=== PATIENT | male | born 1990 | race Caucasian/White ===

== ENCOUNTER 2023-11-11 18:57 | Inpatient (IN) | payer OTHER ==
[2023-11-11] MEDS ORDERED: KETOROLAC TROMETHAMINE 15 MG/ML VIAL ONE ×2 (20:49→20:51)
[2023-11-11] MEDS ORDERED: ACETAMINOPHEN INJECTION 100 ML IVPB ONE (20:49)
[2023-11-11] MEDS: KETOROLAC TROMETHAMINE 15 MG/ML VIAL IVPUSH ONE (21:07)
[2023-11-11] MEDS: ACETAMINOPHEN 1000 MG/100 ML BAG IVPB ONE (21:07)
[2023-11-11 21:21] LABS: BASO % 0.6 % (0-2.0); EOS % 2.9 % (0-4.5); HEMATOCRIT 28.8 % (35.4-49); MCH 22.5 pg (25.7-33.7); MCHC 31.2 g/dl (32.0-35.9); MEAN PLT VOLUME 6.6 fl (7.5-11.1); MONO % 9.7 % (3.8-10.2); NEUT % 62.8 % (42.8-82.8); PLATELET COUNT 508 10^3/uL (134-434); RDW 19.9 % (11.9-15.9); WHITE BLOOD COUNT 7.9 K/mm3 (4.0-10.0)
[2023-11-11 21:47] LABS: CALCIUM 8.4 mg/dL (8.5-10.1)
[2023-11-11 21:48] LABS: ALBUMIN 2.9 g/dl (3.4-5.0); BLOOD UREA NITROGEN 25.6 mg/dL (7-18)
[2023-11-11 21:51] LABS: CREATININE 0.8 mg/dL (0.55-1.3)
[2023-11-11 21:52] LABS: BILIRUBIN,TOTAL 0.2 mg/dL (0.2-1); TOT PROT 7.1 g/dl (6.4-8.2)
[2023-11-11] MEDS ORDERED: VANCOMYCIN HCL 1,500 MG in DEXTROSE 5%-WATER - 500 ML IVPB ONE (23:32)
[2023-11-12] MEDS ORDERED: PIPERACILLIN/TAZOB 3.375 GM 3.375 GM/50 ML BAG IVPB ONE (00:31)
[2023-11-12] MEDS: PIPERACILLIN/TAZOB 3.375 GM 3.375 GM in DEXTROSE 5%-WATER - 50 ML IVPB ONE (00:56)
[2023-11-12] MEDS ORDERED: VANCOMYCIN 1,000 MG in DEXTROSE 5%-WATER - 250 ML IVPB SCH (03:30)
[2023-11-12] MEDS ORDERED: VANCOMYCIN HCL 1,500 MG in DEXTROSE 5%-WATER - 250 ML IVPB SCH (03:30)
[2023-11-12] MEDS: ACETAMINOPHEN 1000 MG/100 ML BAG IVPB PRN (03:38)
[2023-11-12] MEDS: KETOROLAC TROMETHAMINE 15 MG/ML VIAL IVPUSH PRN (03:38)
[2023-11-12] MEDS ORDERED: cloNIDine HCL 0.1 MG TABLET PO PRN (03:43)
[2023-11-12] MEDS ORDERED: methaDONE HCL 10 MG TABLET ONE (03:58)
[2023-11-12] MEDS: methaDONE HCL 10 MG TABLET (FOR DETOX USE ONLY) PO ONE (04:11)
[2023-11-12] MEDS: VANCOMYCIN PREMIX 1.5 GM 1,500 MG/300 ML BAG IVPB ONE (04:55)
[2023-11-12] MEDS: GABAPENTIN 300 MG CAPSULE PO SCH (06:38)
[2023-11-12 06:58] VITALS: BMI 28.0
[2023-11-12] MEDS ORDERED: PIPERACILLIN/TAZOBACTAM 3.375 GM VIAL IVPB ONE (09:30)
[2023-11-12] MEDS ORDERED: PIPERACILLIN/TAZOB 3.375 GM 3.375 GM in DEXTROSE 5%-WATER - 50 ML IVPB SCH (10:00)
[2023-11-12] MEDS ORDERED: POLYETHYLENE GLYCOL (HEALTHYLAX) 3350 17 GM PACKET PO PRN (10:16)
[2023-11-12] MEDS ORDERED: ONDANSETRON *ODT* 4 MG TABLET SL PRN (10:16)
[2023-11-12] MEDS ORDERED: hydrOXYzine PAMOATE 25 MG CAPSULE (FP) PO PRN (10:16)
[2023-11-12] MEDS ORDERED: LOPERAMIDE HCL 2 MG CAPSULE PO PRN (10:16)
[2023-11-12] MEDS ORDERED: NALOXONE HCL 0.4 MG/ML VIAL IM PRN (10:16)
[2023-11-12] MEDS ORDERED: MAG HYDROX/AL HYDROX/SIMETH 30 ML UNIT-DOSE CUP PO PRN (10:16)
[2023-11-12 10:35] LABS: BASO % 0.7 % (0-2.0); EOS % 2.1 % (0-4.5); HEMATOCRIT 32.5 % (35.4-49); HEMOGLOBIN 9.7 GM/dL (11.7-16.9); LYMPH % 18.1 % (8-40); MCH 21.8 pg (25.7-33.7); MCHC 29.8 g/dl (32.0-35.9); MEAN CELL VOLUME 73.1 fl (80-96); MEAN PLT VOLUME 6.3 fl (7.5-11.1); MONO % 9.5 % (3.8-10.2); NEUT % 69.6 % (42.8-82.8); PLATELET COUNT 540 10^3/uL (134-434); RBC 4.45 M/mm3 (4.00-5.60); RDW 19.3 % (11.9-15.9); WHITE BLOOD COUNT 8.3 K/mm3 (4.0-10.0)
[2023-11-12] MEDS: PIPERACILLIN/TAZOB 3.375 GM 3.375 GM in DEXTROSE 5%-WATER - 50 ML IVPB SCH ×2 (10:47→18:43)
[2023-11-12] MEDS: NICOTINE 21 MG/24 HOURS TOPICAL PATCH TD SCH (10:47)
[2023-11-12] MEDS: ENOXAPARIN NA (PORCINE) 40 MG/0.4 ML DISP.SYRIN SQ SCH (10:47)
[2023-11-12 10:51] LABS: POTASSIUM 4.2 mmol/L (3.5-5.1)
[2023-11-12 10:53] LABS: ALBUMIN 3.4 g/dl (3.4-5.0); BLOOD UREA NITROGEN 23.5 mg/dL (7-18); CALCIUM 8.5 mg/dL (8.5-10.1); MAGNESIUM 1.8 mg/dL (1.8-2.4)
[2023-11-12 10:56] LABS: CREATININE 0.7 mg/dL (0.55-1.3); PHOSPHOROUS 3.1 mg/dL (2.5-4.9)
[2023-11-12 10:58] LABS: BILIRUBIN,TOTAL 0.3 mg/dL (0.2-1); TOT PROT 7.9 g/dl (6.4-8.2)
[2023-11-12] MEDS: diphenhydrAMINE HCL 25 MG CAPSULE (FP) PO PRN (11:22)
[2023-11-12] MEDS: DICYCLOMINE HCL 10 MG CAPSULE PO PRN (11:23)
[2023-11-12 11:32] LABS: ANISOCYTOSIS 3+; MACROCYTOSIS 0
[2023-11-12 13:10] VITALS: RESP 18
[2023-11-12] MEDS: ACETAMINOPHEN 325 MG TABLET (FP) PO PRN (18:48)
[2023-11-12] MEDS ORDERED: KETOROLAC TROMETHAMINE 10 MG TABLET PO PRN (20:22)
[2023-11-12] MEDS: AMOX TR/POT CLAV 875MG/125MG TABLETS (FP) PO ONE (20:45)
[2023-11-12] MEDS: THIAMINE HCL 100 MG TABLET (FP) PO SCH (21:14)
[2023-11-12] MEDS: MELATONIN 5 MG TABLETS PO SCH (21:15)
[2023-11-13] MEDS: KETOROLAC TROMETHAMINE 10 MG TABLET PO PRN (01:35)
[2023-11-13] MEDS: AMOX TR/POT CLAV 875MG/125MG TABLETS (FP) PO ONE (10:27)
[2023-11-13] MEDS ORDERED: LORazepam 1 MG TABLET PO ONE (14:45)
[2023-11-13] MEDS: LORazepam 1 MG TABLET PO ONE (14:47)
[2023-11-13] MEDS: COLLAGENASE CLOSTRIDIUM HIST. 30 GRAMS TUBE TP SCH (14:47)
[2023-11-13 16:08] LABS: BASO % 0.5 % (0-2.0); EOS % 2.4 % (0-4.5); HEMATOCRIT 30.9 % (35.4-49); HEMOGLOBIN 9.3 GM/dL (11.7-16.9); LYMPH % 21.1 % (8-40); MCH 21.9 pg (25.7-33.7); MCHC 30.1 g/dl (32.0-35.9); MEAN CELL VOLUME 72.8 fl (80-96); MEAN PLT VOLUME 6.6 fl (7.5-11.1); MONO % 10.2 % (3.8-10.2); NEUT % 65.8 % (42.8-82.8); PLATELET COUNT 566 10^3/uL (134-434); RBC 4.24 M/mm3 (4.00-5.60); RDW 19.1 % (11.9-15.9); WHITE BLOOD COUNT 8.5 K/mm3 (4.0-10.0)
[2023-11-13 16:58] LABS: POTASSIUM 4.4 mmol/L (3.5-5.1)
[2023-11-13 17:01] LABS: BLOOD UREA NITROGEN 18.8 mg/dL (7-18); CALCIUM 8.7 mg/dL (8.5-10.1)
[2023-11-13 17:04] LABS: CREATININE 0.7 mg/dL (0.55-1.3); PHOSPHOROUS 4.5 mg/dL (2.5-4.9)
[2023-11-14 08:17] LABS: POTASSIUM 4.5 mmol/L (3.5-5.1)
[2023-11-14 08:27] LABS: ALBUMIN 3.3 g/dl (3.4-5.0); BLOOD UREA NITROGEN 19.6 mg/dL (7-18)
[2023-11-14 08:28] LABS: CALCIUM 8.6 mg/dL (8.5-10.1)
[2023-11-14 08:30] LABS: CREATININE 0.8 mg/dL (0.55-1.3)
[2023-11-14 08:32] LABS: BILIRUBIN,TOTAL 0.3 mg/dL (0.2-1); TOT PROT 7.3 g/dl (6.4-8.2)
[2023-11-14 08:45] LABS: BASO % 0.5 % (0-2.0); EOS % 2.5 % (0-4.5); HEMATOCRIT 30.5 % (35.4-49); HEMOGLOBIN 9.1 GM/dL (11.7-16.9); LYMPH % 24.2 % (8-40); MCH 21.7 pg (25.7-33.7); MCHC 29.9 g/dl (32.0-35.9); MEAN CELL VOLUME 72.6 fl (80-96); MEAN PLT VOLUME 6.6 fl (7.5-11.1); MONO % 12.1 % (3.8-10.2); NEUT % 60.7 % (42.8-82.8); PLATELET COUNT 532 10^3/uL (134-434); RDW 19.1 % (11.9-15.9); WHITE BLOOD COUNT 6.4 K/mm3 (4.0-10.0)
[2023-11-14] MEDS: methaDONE HCL 10 MG TABLET PO ONE (09:49)
[2023-11-14] MEDS ORDERED: methaDONE HCL 10 MG TABLET (FOR DETOX USE ONLY) PO ONE (10:00)
[2023-11-14] MEDS: IRON SUCROSE INJECTION 200 MG in SODIUM CHLORIDE 100 ML IVPB ONE (14:30)
[2023-11-15] MEDS: ACETAMINOPHEN 1000 MG/100 ML BAG IVPB PRN (03:31)
[2023-11-15] MEDS: IRON SUCROSE INJECTION 200 MG in SODIUM CHLORIDE 100 ML IVPB ONE (09:56)
[2023-11-15] MEDS ORDERED: ONDANSETRON 4 MG/2 ML VIAL ONE (10:09)
[2023-11-15 10:20] LABS: POTASSIUM 4.1 mmol/L (3.5-5.1)
[2023-11-15 10:36] LABS: CALCIUM 8.3 mg/dL (8.5-10.1)
[2023-11-15 10:37] LABS: BLOOD UREA NITROGEN 22.5 mg/dL (7-18)
[2023-11-15 10:40] LABS: BILIRUBIN,TOTAL 0.2 mg/dL (0.2-1); CREATININE 0.7 mg/dL (0.55-1.3); TOT PROT 6.9 g/dl (6.4-8.2)
[2023-11-15 10:54] LABS: ERYTHROCYTE SEDIMENTATION RATE 27 mm/hr (0-10)
[2023-11-15 10:57] LABS: BASO % 0.9 % (0-2.0); EOS % 4.1 % (0-4.5); HEMATOCRIT 28.4 % (35.4-49); HEMOGLOBIN 8.6 GM/dL (11.7-16.9); LYMPH % 23.3 % (8-40); MCH 21.9 pg (25.7-33.7); MCHC 30.4 g/dl (32.0-35.9); MEAN PLT VOLUME 6.7 fl (7.5-11.1); MONO % 12.1 % (3.8-10.2); NEUT % 59.6 % (42.8-82.8); PLATELET COUNT 481 10^3/uL (134-434); RBC 3.95 M/mm3 (4.00-5.60); RDW 19.1 % (11.9-15.9); WHITE BLOOD COUNT 5.6 K/mm3 (4.0-10.0)
[2023-11-15] MEDS: DOCUSATE SODIUM 100 MG CAPSULE (FP) PO SCH (22:29)
[2023-11-15] MEDS: KETOROLAC TROMETHAMINE 15 MG/ML VIAL IVPUSH ONE (22:41)
[2023-11-16] MEDS: ACETAMINOPHEN 1000 MG/100 ML BAG IVPB ONE (02:41)
[2023-11-16 09:05] LABS: BASO % 1.1 % (0-2.0); EOS % 4.8 % (0-4.5); HEMATOCRIT 31.7 % (35.4-49); HEMOGLOBIN 9.9 GM/dL (11.7-16.9); LYMPH % 27.4 % (8-40); MCH 22.6 pg (25.7-33.7); MCHC 31.1 g/dl (32.0-35.9); MEAN CELL VOLUME 72.6 fl (80-96); MEAN PLT VOLUME 6.9 fl (7.5-11.1); NEUT % 54.7 % (42.8-82.8); PLATELET COUNT 517 10^3/uL (134-434); RBC 4.37 M/mm3 (4.00-5.60); RDW 19.1 % (11.9-15.9); WHITE BLOOD COUNT 5.9 K/mm3 (4.0-10.0)
[2023-11-16 09:28] LABS: POTASSIUM 4.4 mmol/L (3.5-5.1)
[2023-11-16] MEDS: methaDONE HCL 10 MG TABLET PO ONE (10:17)
[2023-11-16] MEDS: FUROSEMIDE 40 MG/4 ML INJECTABLE VIAL IVPUSH ONE (10:19)
[2023-11-16] MEDS: DOXYCYCLINE INJECTION 100 MG in DEXTROSE 5%-WATER 100 ML IVPB SCH (10:21)
[2023-11-16] MEDS: IRON SUCROSE INJECTION 100 MG in SODIUM CHLORIDE 95 ML IVPB ONE (10:21)
[2023-11-16] MEDS ORDERED: VANCOMYCIN/WATER 1250 MG 1,250 MG/250 ML BAG IVPB SCH (11:00)
[2023-11-16 12:26] LABS: ALBUMIN 3.5 g/dl (3.4-5.0); BLOOD UREA NITROGEN 21.7 mg/dL (7-18)
[2023-11-16 12:29] LABS: CREATININE 0.8 mg/dL (0.55-1.3)
[2023-11-16] MEDS: VANCOMYCIN/WATER 1250 MG 1,250 MG/250 ML BAG IVPB SCH (12:29)
[2023-11-16 12:31] LABS: BILIRUBIN,TOTAL 0.3 mg/dL (0.2-1); TOT PROT 7.8 g/dl (6.4-8.2)
[2023-11-16] MEDS: ACETAMINOPHEN 1000 MG/100 ML BAG IVPB PRN (21:12)
[2023-11-17] MEDS: FUROSEMIDE 40 MG/4 ML INJECTABLE VIAL IVPUSH ONE (10:21)
[2023-11-17] MEDS: IBUPROFEN 600 MG TABLET (FP) PO PRN (12:02)
[2023-11-18 09:53] LABS: BASO % 1.4 % (0-2.0); EOS % 5.9 % (0-4.5); HEMATOCRIT 33.6 % (35.4-49); HEMOGLOBIN 10.1 GM/dL (11.7-16.9); LYMPH % 29.5 % (8-40); MCH 22.5 pg (25.7-33.7); MEAN CELL VOLUME 74.9 fl (80-96); MEAN PLT VOLUME 6.9 fl (7.5-11.1); MONO % 15.3 % (3.8-10.2); NEUT % 47.9 % (42.8-82.8); PLATELET COUNT 464 10^3/uL (134-434); RBC 4.48 M/mm3 (4.00-5.60); RDW 19.5 % (11.9-15.9); WHITE BLOOD COUNT 5.4 K/mm3 (4.0-10.0)
[2023-11-18 10:10] LABS: POTASSIUM 4.6 mmol/L (3.5-5.1)
[2023-11-18 10:12] LABS: CALCIUM 8.4 mg/dL (8.5-10.1)
[2023-11-18 10:13] LABS: ALBUMIN 3.4 g/dl (3.4-5.0)
[2023-11-18 10:15] LABS: CREATININE 0.7 mg/dL (0.55-1.3)
[2023-11-18 10:17] LABS: BILIRUBIN,TOTAL 0.4 mg/dL (0.2-1); TOT PROT 7.5 g/dl (6.4-8.2)
[2023-11-18] MEDS: DOXYCYCLINE HYCLATE 100 MG CAPSULE PO SCH (17:20)
[2023-11-18] MEDS: AMOX TR/POT CLAV 875MG/125MG TABLETS (FP) PO SCH (17:20)
[2023-11-21 14:18] VITALS: BP 124/70; PULSE 98; TEMP 98.2
== END 2023-11-21 16:06 | disposition other institution (70) | DRG 383 ==
LOC: JER 18:57 → JERBED 23:31 → OBSVTOIN 11-12 03:15 → J6S 11-12 06:33
PROVIDERS: ADMIT Internal Medicine; ATTEND Internal Medicine
PROC: 05HF33Z Insertion of Infusion Device into Left Cephalic Vein, Percutaneous Approach (ICD-10-PCS; principal; 2023-11-13)
DX: L03.116 Cellulitis of left lower limb (principal); F11.23 Opioid dependence with withdrawal; D50.9 Iron deficiency anemia, unspecified; F17.210 Nicotine dependence, cigarettes, uncomplicated; D47.3 Essential (hemorrhagic) thrombocythemia; F12.90 Cannabis use, unspecified, uncomplicated; F19.10 Other psychoactive substance abuse, uncomplicated; F41.8 Other specified anxiety disorders; T87.9 Unspecified complications of amputation stump; Z89.511 Acquired absence of right leg below knee; Y83.9 Surgical procedure, unspecified as the cause of abnormal reaction of the patient, or of later complication, without mention of misadventure at the time of the procedure; K59.00 Constipation, unspecified
CPT/HCPCS: 36415; 71045-TC-FY; 73630-TC-LT; 73701-TC-RT; 80048; 80053; 80305; 83540; 83550; 83735; 84100; 85025; 85651; 86140; 87040; 87070; 87077; 87081; 87186; 87205; 99285-25; G0378; G0480; J0131; J1756; Q9967

== ENCOUNTER 2023-11-21 17:31 | Inpatient (IN) | payer OTHER ==
[2023-11-21 18:51] VITALS: BMI 29.7
[2023-11-21] MEDS ORDERED: ACETAMINOPHEN 325 MG TABLET (FP) PO PRN ×2 (18:53→18:57)
[2023-11-21] MEDS ORDERED: MAGNESIUM HYDROX 2400MG/30ML ORAL SUSPENSION 30 ML CUP PO PRN (18:53)
[2023-11-21] MEDS ORDERED: NALOXONE HCL 0.4 MG/ML VIAL IVPUSH PRN (18:53)
[2023-11-21] MEDS ORDERED: MAG HYDROX/AL HYDROX/SIMETH 30 ML UNIT-DOSE CUP PO PRN (18:53)
[2023-11-21] MEDS ORDERED: BENZONATATE 200 MG CAPSULE PO PRN (18:53)
[2023-11-21] MEDS ORDERED: METHOCARBAMOL 500 MG TABLET PO PRN (18:53)
[2023-11-21] MEDS ORDERED: DOCUSATE SODIUM 100 MG CAPSULE (FP) PO PRN (18:53)
[2023-11-21] MEDS ORDERED: guaiFENesin 600 MG TABLET.ER (FP) PO PRN (18:53)
[2023-11-21] MEDS ORDERED: POLYETHYLENE GLYCOL (HEALTHYLAX) 3350 17 GM PACKET PO PRN (18:53)
[2023-11-21] MEDS ORDERED: NALOXONE (NYS OPIOID OVERDOSE PROGRAM) 4 MG/0.1 ML SPRAY NS PRN (18:53)
[2023-11-21] MEDS ORDERED: IBUPROFEN 400 MG TABLET (FP) PO PRN (18:53)
[2023-11-21] MEDS ORDERED: LOPERAMIDE HCL 2 MG CAPSULE PO PRN (18:53)
[2023-11-21] MEDS ORDERED: BUPRENORPHINE/NALOXONE 4 MG/1 MG FILM PACKET ONE (19:53)
[2023-11-21] MEDS: BUPRENORPHINE/NALOXONE 8 MG/2 MG FILM PACKET SL SCH (19:57)
[2023-11-21] MEDS: DOXYCYCLINE HYCLATE 100 MG TABLET PO SCH (20:54)
[2023-11-21] MEDS: AMOX TR/POT CLAV 875MG/125MG TABLETS (FP) PO SCH (20:55)
[2023-11-21] MEDS: IBUPROFEN 600 MG TABLET (FP) PO PRN (20:57)
[2023-11-21] MEDS: THIAMINE HCL 100 MG TABLET (FP) PO SCH (21:36)
[2023-11-21] MEDS: GABAPENTIN 300 MG CAPSULE PO SCH (21:36)
[2023-11-21] MEDS: MELATONIN 5 MG TABLETS PO SCH (21:36)
[2023-11-21] MEDS: COLLAGENASE CLOSTRIDIUM HIST. 30 GRAMS TUBE TP SCH (21:39)
[2023-11-21] MEDS ORDERED: NALOXONE HCL (KLOXXADO) 8 MG SPRAY NS PRN (21:51)
[2023-11-22] MEDS: PRENATAL VITAMINS W/ FOLIC ACID TABLET (FP) PO SCH (09:51)
[2023-11-22] MEDS: NICOTINE 14 MG/24 HOURS TOPICAL PATCH TD SCH (09:52)
[2023-11-23] MEDS ORDERED: CALAMINE 8% TOPICAL LOTION 177 ML BOTTLE TP PRN (09:14)
[2023-11-23] MEDS ORDERED: BISACODYL 5 MG TABLET.DR (FP) PO PRN (09:14)
[2023-11-23] MEDS: NICOTINE POLACRILEX 2 MG GUM BUC PRN (09:37)
[2023-11-23] MEDS: SUVOREXANT 5 MG TABLET PO PRN (21:06)
[2023-11-24] MEDS: hydrOXYzine PAMOATE 25 MG CAPSULE (FP) PO PRN (06:26)
[2023-11-24] MEDS: SELENIUM SULFIDE 2.25% 180 ML SHAMPOO TP SCH (12:21)
[2023-11-25] MEDS: AMMONIUM LACTATE 12% LOTION 225 GM BOTTLE TP PRN (10:06)
[2023-11-25] MEDS: SUVOREXANT 5 MG TABLET PO PRN (21:21)
[2023-11-26] MEDS: MELATONIN 5 MG TABLETS PO SCH (21:49)
[2023-11-28] MEDS: SUVOREXANT 5 MG TABLET PO PRN (21:07)
[2023-11-30] MEDS: SUVOREXANT 5 MG TABLET PO PRN (21:12)
[2023-12-01] MEDS: BENZOCAINE/MENTHOL (CHLORASEPTIC ) LOZENGE MM PRN (21:27)
[2023-12-02] MEDS: SUVOREXANT 5 MG TABLET PO PRN (21:11)
[2023-12-04] MEDS: SUVOREXANT 5 MG TABLET PO PRN (21:13)
[2023-12-04] MEDS: P-EPHED 60MG/TRIPROLIDI 2.5MG TABLET PO ONE (23:52)
[2023-12-07 07:54] VITALS: TEMP 97.5
[2023-12-07] MEDS: SUVOREXANT 5 MG TABLET PO PRN (21:27)
[2023-12-08 06:47] VITALS: BP 113/85; PULSE 75; RESP 17
== END 2023-12-08 11:35 | disposition left against medical advice (07) | DRG 770 ==
LOC: YASAS 17:31 → Y3W 19:24
PROVIDERS: ADMIT Allergy & Immunology; ATTEND Psychiatry & Neurology Pain Medicine
PROC: HZ42ZZZ Group Counseling for Substance Abuse Treatment, Cognitive-Behavioral (ICD-10-PCS; principal; 2023-11-21)
DX: F11.20 Opioid dependence, uncomplicated (principal); F14.20 Cocaine dependence, uncomplicated; F17.210 Nicotine dependence, cigarettes, uncomplicated; F19.24 Other psychoactive substance dependence with psychoactive substance-induced mood disorder; G47.00 Insomnia, unspecified; L03.116 Cellulitis of left lower limb; T87.43 Infection of amputation stump, right lower extremity; L03.115 Cellulitis of right lower limb; R09.81 Nasal congestion; F91.8 Other conduct disorders; Z91.199 Patient's noncompliance with other medical treatment and regimen due to unspecified reason; Z89.511 Acquired absence of right leg below knee; Z59.00 Homelessness unspecified